=== PATIENT | male | born 1965 | race Hispanic/Latino ===

== ENCOUNTER 2017-08-18 15:59 | Outpatient (CLI) | payer BC ==
--- NOTE | 2017-08-18 19:14 | MRI ---
MRI LEFT SHOULDER WITHOUT CONTRAST 08/18/17 HISTORY: Shoulder pain, M25.512. COMPARISON: Shoulder radiograph 07/06/17. FINDINGS: BICEPS TENDON: Mild extra-articular biceps tendosynovitis. Low grade intra-articular biceps tendinosi s. There is abnormal chronic tearing throughout the superior labrum extending to the posterior superior labrum. ROTATOR CUFF: There is high grade articular surface tearing of the footplate throughout the supraspin atus tendon with low grade partial tearing of the infraspinatus tendon. The supraspinatus tear is 50- 75% of the thickness. There is likely a full thickness perforation as there is fluid within the subac romial/subdeltoid bursa. There is some retraction of fibers in the mid humeral head from the partial tearing. BONES: Moderate degenerative disease of the acromioclavicular joint. Type I acromion. SOFT TISSUES: There is soft tissue synovitis within the rotator interval. The subcoracoid fat is main tained. MUSCLES: The muscle bulk is normal. IMPRESSION: 1. High grade partial thickness tear throughout the footplate of the supraspinatus tendon, 50-75 % thickness. There is also likely a full thickness perforation as there is abnormal fluid within the subacrominal/subdeltoid bursa. 2. Extensive < 50% undersurface partial tearing infraspinatus tendon footplate. 3. Delamination with partial delamination of the bursal surface supraspinatus tendon fibers to t he mid humeral head. 4. Degenerative signal throughout the superior labrum as well as what is felt to be a tear of th e posterior superior labrum. 5. Moderate degenerative disease acromioclavicular joint. 6. No muscle atrophy. 7. Mild rotator interval synovitis. POS: [facility]
== END 2017-08-18 16:00 | disposition home or self-care (01) ==
LOC: MRI 15:59
PROVIDERS: ATTEND Orthopaedic Surgery
DX: M25.512 Pain in left shoulder (principal); M75.102 Unspecified rotator cuff tear or rupture of left shoulder, not specified as traumatic; S46.912A Strain of unspecified muscle, fascia and tendon at shoulder and upper arm level, left arm, initial encounter; R93.8 Abnormal findings on diagnostic imaging of other specified body structures; M19.012 Primary osteoarthritis, left shoulder

== ENCOUNTER 2017-08-25 09:17 | Outpatient (CLI) | payer BC ==
[2017-08-25 10:50] LABS: #Eosinphils 0.2 thou/uL (0.0-0.7); #Lymphocytes 2.8 thou/uL (1.20-3.40); #Monocytes 0.6 thou/uL (0.11-0.59); #Neutrophils 3.4 thou/uL (1.40-6.50); %Basophils 0.6 % (0.0-1.0); %Eosinophils 2.6 % (0.0-10.0); %Lymphocytes 40.1 % (21.0-51.0); %Monocytes 7.8 % (0.0-10.0); %Neutrophils 48.9 % (42.0-75.0); Hemoglobin 15.4 g/dL (14.0-18.0); Mean Corpuscular Hemoglobin 30.5 pg (27.0-31.0); Mean Corpuscular Volume 92.7 fl (80.0-94.0); Mean Platelet Volume 8.1 fL (7.4-10.4); Platelet Count 261 thou/uL (130-400); RBC Distribution Width 11.6 % (11.5-14.5); Red Blood Cell (RBC) Count 5.03 mill/uL (4.70-6.10)
== END 2017-08-25 09:18 | disposition home or self-care (01) ==
LOC: LABBT 09:17
PROVIDERS: ATTEND Orthopaedic Surgery
DX: Z01.812 Encounter for preprocedural laboratory examination (principal); M75.102 Unspecified rotator cuff tear or rupture of left shoulder, not specified as traumatic
CPT/HCPCS: 85025

== ENCOUNTER 2017-08-26 05:32 | Day surgery (SDC) | payer BC ==
[2017-08-25 10:23] VITALS: BMI 33.6
[2017-08-26] MEDS ORDERED: Midazolam HCl 2 mg/2 ml Vial ONE (06:24)
[2017-08-26] MEDS ORDERED: Fentanyl 250 MCG/5 ML VIAL ONE (06:24)
[2017-08-26] MEDS ORDERED: Metoclopramide HCl 10 MG/2 ML VIAL ONE ×2 (06:49→14:40)
[2017-08-26] MEDS ORDERED: HYDROmorphone 0.5 MG/0.5 ML SYRINGE ONE (06:49)
[2017-08-26] MEDS ORDERED: Zolpidem Tartrate 5 MG TAB PO PRN (06:53)
[2017-08-26] MEDS ORDERED: Ondansetron HCl/PF 4 MG/2 ML Vial IVP PRN (06:53)
[2017-08-26] MEDS ORDERED: Ropivacaine 0.2% 550 ML 550 ML NERVE BLCK SCH (06:53)
[2017-08-26] MEDS ORDERED: Promethazine HCl 25 MG/ML VIAL IM PRN (06:53)
[2017-08-26] MEDS ORDERED: traMADol HCl 50 MG TAB PO PRN ×2 (06:53)
[2017-08-26] MEDS ORDERED: HYDROcodone/Acetaminophen 10/325 mg Tablet PO PRN ×2 (06:53)
[2017-08-26] MEDS ORDERED: Ketorolac Tromethamine 30 MG/ML VIAL IVP PRN (06:53)
[2017-08-26] MEDS ORDERED: Fentanyl 100 MCG/2 ML VIAL IV PRN (06:55)
[2017-08-26] MEDS ORDERED: CEFAZOLIN/Water 2 GM/20 ML SYRINGE ONE (07:19)
[2017-08-26] MEDS ORDERED: Bupivacaine/Epinephrine 0.25% 30 ML VIAL ONE (07:54)
--- NOTE | 2017-08-26 11:32 | OP ---
DATE OF PROCEDURE: 08/26/2017 PREOPERATIVE DIAGNOSES: 1. High grade partial thickness tear, supraspinatus, infraspinatus posterior aspect of the supraspin atus, infraspinatus. 2. Degenerative AC joint arthritis. 3. Degenerative labral fraying. POSTOPERATIVE DIAGNOSES: 1. High grade pasta lesion with a poke hole full thickness component posterior edge supraspinatus le ading edge of infraspinatus. 2. Degenerative labral fraying. 3. Synovitis. 4. Partial subscapularis tearing. PROCEDURE PERFORMED: Right rotator cuff repair. STAFF: Merrill Spring M.D. LONG CHAIN BEAMER: None. ANESTHESIA: Vakey. The patient received a general intubation with interscalene block. ESTIMATED BLOOD LOSS: 30 mL. TOURNIQUET TIME: None. IMPLANTS: A 4.75 SwiveLock and 5.5 corkscrew Arthrex. ANTIBIOTICS: Ancef 2 grams. COMPLICATIONS: None. HISTORY OF PRESENT ILLNESS: Mr. Echols is a 52-year-old male who presented to my office with 6 kadeem hs of shoulder pain after falling at home. He is right hand dominant, works at [employer]. The patient is complaining of right shoulder, pain at night. The patient had recent neck surgeries. Th e patient had MRI with a high grade full thickness tear high grade partial thickness tear of his left shoulder. I discussed with patient the risks, benefits, and arthroscopic evaluation of left rotator cuff, biceps as well as labrum, possible decompression, biceps, possible tenotomy versus tenodesis a nd decompression. The patient understood the risks and benefits of procedure to include pain, scar, bleeding, infection, damage to vital structures, decreased range of motion or strength, failure of procedure, continued pain despite surgical intervention, need for further surgeries, the risk of blood clots, loss life or limb, anesthetic complications. The patient understood the risks and benef its and elected to proceed. PROCEDURE IN DETAIL: Timeout was performed designating the patient's left upper extremity as the ope rative site, based on site, consents, and markings. After timeout, the patient's left shoulder, he w as placed in a beach chair position with all his bony prominences well-padded. The patient had a pos terior working portal and anterior working portal placed, visualize the shoulder intraarticularly. T here was no humeral or glenoid defects noted. There was some degenerative labral fraying and partial tearing of the subscapularis. The biceps did not have any substantial fraying, its root was intact. There was some undersurface superior labral degenerative fraying, but it was stable and did not sub lux into the joint and given this and given the stable root attachment, I did not perform a tenotomy tenodesis to the bicipital end. Mild changes and no full thickness tearing or even partial thickness tearing when probed and pulled into the joint. I then turned my attention to the rotator cuff which there was a pasta lesion predominantly past the lesion with a capsular avulsions to the capsule avul sed off of its insertion. You could follow the rotator cuff tear into the hole underneath the should er and follow it into where the patient had his full thickness component. I could find the defect wh ere the majority of the space was, I used a spinal needle and it easily fell in through a small poke hole from the shoulder. After completion of this tagged with a Prolene I had moved subacromially. I found the Prolene, I looked at the rest of the cuff and just used an awl and gently pushed through t he small hole and increased its size to expose the pasta lesion, so I think he had a high grade parti al articular surface tear with a 10-hole component. I then opened up the space, debrided the bone, p laced an awl and then tapped the bone and placed a 5.5 corkscrew, I passed 4 sutures anterior to post erior, tied horizontal mattress sutures and placed 1 single lateral row. I decompressed the shoulder , did not see any massive hooks to acromion. I liked the overall alignment of the shoulder and the r epair. I then probed to ensure there was no other spots of opening of the cuff. I then washed and c losed, placing nylon stitches in place. The patient will follow up with me in 2 weeks. He will begin elbow, wrist, and hand motion. He will be sent home with pain medications. He will follow up with me in 2 weeks.
[2017-08-26] MEDS ORDERED: Ropivacaine 0.5% HCl/PF (150 MG/30 ML VIAL) ONE (14:35)
[2017-08-26] MEDS ORDERED: Ropivacaine 0.2% HCl/PF (40 MG/20 ML VIAL) ONE (14:35)
[2017-08-26] MEDS ORDERED: ePHEDrine/0.9% NaCl/PF SYRINGE 50 mg/10 ml ONE (14:40)
[2017-08-26] MEDS ORDERED: Ondansetron HCl/PF 4 MG/2 ML Vial ONE (14:40)
[2017-08-26] MEDS ORDERED: Lidocaine 1% PF 5 ML VIAL ONE (14:40)
[2017-08-26] MEDS ORDERED: diphenhydrAMINE 50 MG/ML VIAL ONE (14:40)
[2017-08-26] MEDS ORDERED: Ketorolac Tromethamine 30 MG/ML VIAL ONE (14:40)
[2017-08-26] MEDS ORDERED: PHENYLEPHRINE-NS 100 MCG/ML 10 ML SYRINGE ONE (14:40)
[2017-08-26] MEDS ORDERED: Propofol 200 MG/20 ML VIAL ONE (14:40)
[2017-08-26] MEDS ORDERED: Glycopyrrolate 0.2 MG/ML 5 ML SYRINGE ONE (14:40)
[2017-08-26] MEDS ORDERED: Dexamethasone 20 MG/5 ML VIAL ONE (14:40)
== END 2017-08-26 11:52 | disposition home or self-care (01) ==
LOC: SDC 05:32
PROVIDERS: ATTEND Orthopaedic Surgery
PROC: 0LM24ZZ Reattachment of Left Shoulder Tendon, Percutaneous Endoscopic Approach (ICD-10-PCS; principal; 2017-08-26)
PROC: 0RNK4ZZ Release Left Shoulder Joint, Percutaneous Endoscopic Approach (ICD-10-PCS; principal; 2017-08-26)
DX: S46.012A Strain of muscle(s) and tendon(s) of the rotator cuff of left shoulder, initial encounter (principal); M65.9 Synovitis and tenosynovitis, unspecified; M10.9 Gout, unspecified; E78.5 Hyperlipidemia, unspecified; M19.019 Primary osteoarthritis, unspecified shoulder; M47.9 Spondylosis, unspecified; E66.9 Obesity, unspecified; Z68.34 Body mass index [BMI] 34.0-34.9, adult; Z79.899 Other long term (current) drug therapy; W19.XXXA Unspecified fall, initial encounter; Y92.009 Unspecified place in unspecified non-institutional (private) residence as the place of occurrence of the external cause
CPT/HCPCS: A4306; C1713; G8984-GP-CK; G8985-GP-CK; G8986-GP-CK; J1100; J1170; J1200; J1885; J2001; J2250; J2405; J2704; J2765; J2795; J3010

== ENCOUNTER 2023-06-03 10:53 | Emergency (ER) | payer OTHER, BC ==
[2023-06-03] MEDS ORDERED: Ibuprofen 200 MG TAB ONE (11:31)
[2023-06-03] MEDS ORDERED: Bacitracin 1 PK ONE ×2 (11:31→12:49)
[2023-06-03] MEDS ORDERED: Boostrix 0.5 ML (Tdap) VIAL (>/=7 yrs of age) ONE (11:32)
== END 2023-06-03 12:50 | disposition home or self-care (01) ==
LOC: ERS 10:53
DX: S61.231A Puncture wound without foreign body of left index finger without damage to nail, initial encounter (principal); E11.9 Type 2 diabetes mellitus without complications; I10 Essential (primary) hypertension; W29.4XXA Contact with nail gun, initial encounter; Y99.0 Civilian activity done for income or pay; Z23 Encounter for immunization
CPT/HCPCS: 90471; 90715